=== PATIENT | female | born 1970 | race Caucasian/White ===

== ENCOUNTER 2016-10-06 18:57 | Emergency (ER) | payer MEDICAID ==
[2016-10-06] MEDS ORDERED: LIDOCAINE HCL 2% JELLY 1 APP/5 ML TUBE ONE (19:44)
[2016-10-06] MEDS ORDERED: MAGNESIUM CITRATE SOLN 296 ML BTL ONE ×2 (20:58→23:37)
[2016-10-06] MEDS ORDERED: ONDANSETRON ODT 8 MG TAB.RAPDIS PO ONE (22:09)
--- NOTE | 2016-10-06 23:33 | ER PHYSICIAN DOCUMENTATION ---
Physician Documentation [facility] Name:Karly Hitchcock Age:46 yrs Sex:Female :1970 Arrival Date:10/06/2016 Time:18:57 Bed3 Private MD:Tashi Andres; Kimberlyn Puentes ED, Scott Disposition: 10/06/16 20:08 Discharged to Home/Self Care. Impression: Constipation. - Condition is Good. - Discharge Instructions: CONSTIPATION (Adult). - Medical Reconciliation form form. - Follow up: Kimberlyn Puentes; When: As needed; Reason: Continuance of care. - Problem is new. - Symptoms have improved. HPI: 10/06 20:05 This 46 yrs old Female presents to ER via Private Vehicle with complaints of sc Abdominal Pain. 20:05 The patient presents with constipation, the patient has not had a bowel movement for sc 2days. Onset: The symptoms/episode began/occurred gradually. The symptoms do not radiate. Associated signs and symptoms: none. Modifying factors: the symptoms are aggravated by narcotics since mesh takedown on bladder, using colace but nothing else. Historical: - Allergies: PENICILLINS; - Home Meds: 1. morphine 15 mg oral TbER 1 tab every 12 hours 2. Percocet 5-325 mg oral tab 1 tab every 6 hours for Pain 3. bupropion HCl 75 mg oral tab bid for bipolar 4. metformin for wt loss twice a day 5. lamotrigine 150 mg oral tab 1 tab 2 times per day 6. Gralise 600 mg oral Tb24 6 tabs daily 7. nifedipine 10 mg oral cap 1 cap 3 times per day 8. topiramate 100 mg oral tab 1 tab 2 times per day 9. methotrexate sodium 2.5 mg oral tab 3 tabs once a week 10. ondansetron HCl 8 mg oral tab 1 tab 11. gabapentin 600 mg oral tab 1 tab 3 times per day for Neuropathic Pain - PMHx: DIABETES - NIDDM; Lower Extremity Pain (August 20, 2015); BIPOLAR DISORDER; circulation problem in feet; neuropathy; - PSHx: bladder mesh removal 08/2016; - Tetanus: < 10 years. - Ebola Screening: : Patient negative for fever greater than or equal to 101.5 degrees Fahrenheit, and additional compatible Ebola Virus Disease symptoms. Patient denies exposure to infectious person. Patient denies travel to an Ebola-affected area in the 21 days before illness onset. No symptoms or risks identified at this time. . - Immunization history: Unable to Obtain. - Social history: Smoking status: Patient states was never smoker of tobacco. ROS: 20:06 Constitutional: Negative for fever, chills, and weight loss. sc Eyes: Negative for injury, pain, redness, and discharge. ENT: Negative for injury, pain, and discharge. Cardiovascular: Negative for chest pain, palpitations, and edema. Respiratory: Negative for shortness of breath, cough, wheezing, and pleuritic chest pain. Skin: Negative for injury, rash, and discoloration. 20:06 Neuro: Negative for headache, weakness, numbness, tingling, and seizure. sc 20:06 Abdomen/GI: Positive for constipation, Negative for nausea, vomiting, diarrhea, abdominal cramps, abdominal distension, anorexia, dysphagia. Exam: Constitutional: This is a well developed, well nourished patient who is awake, alert, and in no acute distress. Head/Face: Normocephalic, atraumatic. Eyes: Pupils equal round and reactive to light, extra-ocular motions intact. Lids and lashes normal. Conjunctiva and sclera are non-icteric and not injected. Cornea within normal limits. Periorbital areas with no swelling, redness, or edema. Cardiovascular: Regular rate and rhythm with a normal S1 and S2. No gallops, murmurs, or rubs. Normal PMI, no JVD. No pulse deficits. Respiratory: Lungs have equal breath sounds bilaterally, clear to auscultation and percussion. No rales, rhonchi or wheezes noted. No increased work of breathing, no retractions or nasal flaring. Back: No spinal tenderness. No costovertebral tenderness. Full range of motion. Skin: Warm, dry with normal turgor. Normal color with no rashes, no lesions, and no evidence of cellulitis. 20:06 Neuro: Awake and alert, GCS 15, oriented to person, place, time, and situation. sc Cranial nerves II-XII grossly intact. Motor strength 5/5 in all extremities. Sensory grossly intact. Cerebellar exam normal. Normal gait. 20:06 Abdomen/GI: Inspection: abdomen appears normal, Bowel sounds: normal, Palpation: abdomen is soft and non-tender, Rectal exam: fecal impaction, that is mild, per rn. Vital Signs: 19:07 BP 129 / 84; Pulse 92; Resp 16; Temp 98.5; Pulse Ox 95% ; Weight 110.22 kg; Height 5 jt ft. 3 in. (160.02 cm); 23:11 BP 125 / 66; Pulse 74; Resp 15; Pulse Ox 96% on R/A; Pain 0/10; mk2 23:31 BP 124 / 61; Pulse 80; Pulse Ox 97% on R/A; Pain 0/10; mk2 19:07 Body Mass Index 43.05 (110.22 kg, 160.02 cm) jt MDM: 19:35 Patient medically screened. mn 20:07 Differential diagnosis: bowel obstruction, non-specific abd pain. Data reviewed: vital sc signs, nurses notes, old medical records, and as a result, I will continue to observe the patient. Counseling: I had a detailed discussion with the patient and/or guardian regarding: the historical points, exam findings, and any diagnostic results supporting the discharge/admit diagnosis, the need for outpatient follow up, to return to the emergency department if symptoms worsen or persist or if there are any questions or concerns that arise at home. Response to treatment: the patient's symptoms have markedly improved after treatment. 10/06 20:51 Order name: Enema: Soap Suds; Complete Time: 21:01 mn Dispensed Medications: 21:01 Drug: Magnesium Citrate Liquid 300 ml; Route: PO; rs 23:11 Follow up: Response: No adverse reaction mk2 21:58 Drug: Zofran 8 mg; Route: PO; rs 23:11 Follow up: Response: Nausea is decreased mk2 23:27 Drug: Magnesium Citrate Liquid 300 ml; Route: PO; mk2 23:31 Follow up: Response: Pharmacy closed - take home med pack mk2 Signatures: Sharmaine Miller RN RN rs Elver Puentes MD MD sc Kruger, Meg, RN RN 2
--- NOTE | 2016-10-06 23:33 | ER NURSING DOCUMENTATION ---
Nurse's Notes [facility] Name:Karly Hitchcock Age:46 yrs Sex:Female :1970 Arrival Date:10/06/2016 Time:18:57 Bed3 Private MD:Tashi Adnres; Kimberlyn Puetnes Diagnosis:Constipation Presentation: 10/06 19:05 Acuity: BENITA 3 mk2 19:06 Presenting complaint: Patient states: Constipated x 2 days, takes morphine and rs Percocet, feels like "the poop is right there", attempted digital removal at home with no success. Has used an enema and stool softeners, also with no success. Had bladder mesh removal surgery 09/11/16. Pain is rectal, not abdominal. No n/v, no f/c. No UTI sx. Transition of care: patient was not received from another setting of care. 19:06 Method Of Arrival: Private Vehicle rs Triage Assessment: 19:15 General: Appears in no apparent distress, uncomfortable, obese. Behavior is anxious, rs cooperative, pleasant. Pain: Complains of pain in rectal Pain currently is 7 out of 10 on a pain scale. Neuro: No deficits noted. Level of Consciousness is awake, alert, Oriented to person, place, time, event. Cardiovascular: No deficits noted. Capillary refill < 3 seconds Pulses are 3+ in left radial artery. Respiratory: No deficits noted. Respiratory effort is even, unlabored, Respiratory pattern is regular, symmetrical. GI: Abdomen is non- distended obese, Bowel sounds present X 4 quads. Abd is soft and non tender Reports constipation, Denies diarrhea, nausea, vomiting. : No deficits noted. Denies burning with urination, discharge, inability to void, urinary frequency, urgency. Derm: No deficits noted. Skin is pink, warm & dry. Historical: - Allergies: PENICILLINS; - Home Meds: 1. morphine 15 mg oral TbER 1 tab every 12 hours 2. Percocet 5-325 mg oral tab 1 tab every 6 hours for Pain 3. bupropion HCl 75 mg oral tab bid for bipolar 4. metformin for wt loss twice a day 5. lamotrigine 150 mg oral tab 1 tab 2 times per day 6. Gralise 600 mg oral Tb24 6 tabs daily 7. nifedipine 10 mg oral cap 1 cap 3 times per day 8. topiramate 100 mg oral tab 1 tab 2 times per day 9. methotrexate sodium 2.5 mg oral tab 3 tabs once a week 10. ondansetron HCl 8 mg oral tab 1 tab 11. gabapentin 600 mg oral tab 1 tab 3 times per day for Neuropathic Pain - PMHx: DIABETES - NIDDM; Lower Extremity Pain (August 20, 2015); BIPOLAR DISORDER; circulation problem in feet; neuropathy; - PSHx: bladder mesh removal 08/2016; - Tetanus: < 10 years. - Ebola Screening: : Patient negative for fever greater than or equal to 101.5 degrees Fahrenheit, and additional compatible Ebola Virus Disease symptoms. Patient denies exposure to infectious person. Patient denies travel to an Ebola-affected area in the 21 days before illness onset. No symptoms or risks identified at this time. . - Immunization history: Unable to Obtain. - Social history: Smoking status: Patient states was never smoker of tobacco. Screenin:30 Nutritional screening: No deficits noted. rs 20:13 Infectious Disease Risk None. Abuse screen: Denies threats or abuse. rs Assessment: 20:13 See Triage Assessment done by same RN. rs 22:05 Reassessment: Patient states feeling better. She is slowly sipping on the Mag Citrate. rs &-up was added to make it more palatable. Encouraged to finish within the next 30 min. Five minutes later she was c/o nausea. Given Zofran. Told to wait until the nausea passes and then restart the Mag Citrate. She states she is no longer having the rectal pain. . Vital Signs: 19:07 BP 129 / 84; Pulse 92; Resp 16; Temp 98.5; Pulse Ox 95% ; Weight 110.22 kg; Height 5 jt ft. 3 in. (160.02 cm); 23:11 BP 125 / 66; Pulse 74; Resp 15; Pulse Ox 96% on R/A; Pain 0/10; mk2 23:31 BP 124 / 61; Pulse 80; Pulse Ox 97% on R/A; Pain 0/10; mk2 19:07 Body Mass Index 43.05 (110.22 kg, 160.02 cm) jt ED Course: 18:59 Patient arrived in ED. ma1 18:59 Tashi Andres MD is Private Physician. ma1 18:59 Kimberlyn Puentes is Private Physician. ma1 19:05 Ronda Dale, RN is Primary Nurse. mk2 19:05 Triage completed. mk2 19:15 Notified ED Physician of patient's arrival and chief complaint. Dr. Puentes notified. Arm rs band placed on Bed in low position Call Light in Reach Gowned HOB Elevated Side rails up x1. Family accompanied patient. 19:30 Valuables Remains with patient. Door closed. Noise minimized. Lights dimmed. Verbal rs reassurance given. Warm blanket given. 19:35 Elver Puentes MD is Attending Physician. pa 19:50 Soap suds enema given. Patient tolerated poorly 400 ml rectally. Held briefly, up to BR rs and had no formed stool, only liquid. . 20:07 Kimberlyn Puentes is Referral Physician. pa 20:30 Soap suds enema given. Patient tolerated poorly 400 ml rectally. Held much longer this rs time. Up to the BR with . 22:19 Report received from Zuly Christensen [facility] Administered Medications: 21:01 Drug: Magnesium Citrate Liquid 300 ml; Route: PO; rs 23:11 Follow up: Response: No adverse reaction mk2 21:58 Drug: Zofran 8 mg; Route: PO; rs 23:11 Follow up: Response: Nausea is decreased mk2 23:27 Drug: Magnesium Citrate Liquid 300 ml; Route: PO; mk2 23:31 Follow up: Response: Pharmacy closed - take home med pack 2 Outcome: 20:08 Discharge ordered by . pa 23:31 Discharged to home ambulatory. 2 23:31 Condition: Pt states she has had a small bm but prefers to go home and wait for the medication to take effect. 23:31 Discharge instructions given to patient, family, Instructed on discharge instructions, follow up and referral plans. medication usage. 23:32 Patient left the ED. mk2 10/07 12:21 Discharge F/U Call: Unable to reach: non-working number st Signatures: Reena Luna RN RN st Stalker, Rachael, RN RN rs Chew, Scott, MD MD sc Kruger, Meg, RN RN 2 Radha Kaufman Melissa [facility]
== END 2016-10-06 23:33 | disposition home or self-care (01) ==
LOC: ER 18:57
DX: K59.03 Drug induced constipation (principal); R11.0 Nausea; Z98.890 Other specified postprocedural states; E11.9 Type 2 diabetes mellitus without complications; Z79.891 Long term (current) use of opiate analgesic; Z79.899 Other long term (current) drug therapy
CPT/HCPCS: 99284

== ENCOUNTER 2016-11-07 06:28 | Day surgery (SDC) | payer MEDICAID ==
[2016-11-07] MEDS ORDERED: LIDOCAINE HCL 1% 20 ML VIAL SUBCUT PRN ×2 (07:11→08:44)
[2016-11-07] MEDS ORDERED: MIDAZOLAM HCL 2 MG/2 ML SYR IV PRN ×2 (07:11→08:44)
[2016-11-07] MEDS ORDERED: FAMOTIDINE IN SALINE, ISO-OSM 20 MG/50 ML PIGGYBACK IV SCH ×2 (07:15→08:44)
[2016-11-07] MEDS ORDERED: ACETAMINOPHEN 1,000 MG/100 ML VIAL IV SCH ×2 (07:15→08:44)
[2016-11-07] MEDS ORDERED: BUPIVACAINE/EPI 0.25% 1 VIAL VIAL ONE (07:18)
[2016-11-07] MEDS ORDERED: ONDANSETRON HCL 4 MG/2 ML VIAL IV PRN ×3 (07:25→08:44)
[2016-11-07] MEDS ORDERED: BACITRACIN 14 APP/14 GM TUBE TOPICAL ONE (07:28)
[2016-11-07] MEDS ORDERED: ONDANSETRON HCL 4 MG/2 ML VIAL ONE ×2 (07:29→08:50)
[2016-11-07] MEDS ORDERED: MIDAZOLAM HCL 2 MG/2 ML VIAL ONE (07:29)
[2016-11-07] MEDS ORDERED: SUCCINYLCHOLINE CHLORIDE 200 MG/10 ML VIAL ONE (07:30)
[2016-11-07] MEDS ORDERED: CLINDAMYCIN/D5W 600 MG/50 ML 600 MG PIGGYBACK IV ONE ×3 (07:30→08:44)
[2016-11-07] MEDS ORDERED: ROCURONIUM BROMIDE 50 MG/5 ML VIAL IV ONE (07:31)
[2016-11-07] MEDS ORDERED: LIDOCAINE HCL 2% JELLY 1 APP/5 ML TUBE ONE (07:38)
[2016-11-07] MEDS ORDERED: FENTANYL 100 MCG/2 ML VIAL ONE (07:38)
[2016-11-07] MEDS ORDERED: LACTATED RINGERS 1,000 ML IV SCH ×3 (08:00→09:00)
[2016-11-07] MEDS ORDERED: EPHEDrine SULFATE 50 MG/ML VIAL ONE (08:12)
[2016-11-07 08:37] VITALS: TEMP 97.2
[2016-11-07] MEDS ORDERED: KETOROLAC TROMETHAMINE 30 MG/ML VIAL IV PRN (08:44)
[2016-11-07] MEDS ORDERED: FENTANYL 100 MCG/2 ML VIAL IV PRN (08:44)
[2016-11-07 08:53] VITALS: RESP 16
[2016-11-07] MEDS ORDERED: KETOROLAC TROMETHAMINE 30 MG/ML VIAL ONE (09:00)
[2016-11-07] MEDS: MORPHINE SULFATE 10 MG/ML SYR IV PRN ×2 (09:00→09:10)
[2016-11-07 09:38] VITALS: O2SAT 93
[2016-11-07 10:24] VITALS: BP 99/79; PULSE 76
--- NOTE | 2016-11-07 16:08 | OPERATIVE REPORT ---
DATE OF SURGERY: 11/07/16 SURGEON: Jeffry Benjamin DO ANESTHESIA: General. PREOPERATIVE DIAGNOSIS: Right knee medial meniscus tear. POSTOPERATIVE DIAGNOSIS: Right knee medial meniscus tear, plica/synovitis. Grade 4 chondromalacia medial femoral condyle, medial tibial plateau and trochlea. OPERATION PERFORMED: Right knee arthroscopic medial meniscectomy and plica/ synovectomy. ESTIMATED BLOOD LOSS: Minimal. COMPLICATIONS: None. TOTAL TOURNIQUET TIME: 29 minutes. PROCEDURE NOTE: The patient was brought to the operating room suite and after administration of general anesthesia the right lower extremity was prepped and draped in sterile fashion. The leg was exsanguinated of blood with an Esmarch bandage prior to insufflation of the tourniquet to 300 mmHg. Anterolateral portal was created first and then anteromedial portal was created after first inserting a spinal needle under direct visualization. The portal sites were injected with 0.25% bupivacaine with epinephrine prior to incision. Diagnostic arthroscopy revealed the above findings. A small portion of the anterior fat pad was removed for visualization purposes. The medial meniscal tear was noted to be in the posterior one-third of the meniscus and had delamination and radial tearing components which was saucerized back to stable meniscal tissue with arthroscopic instrumentation including bitters and shaver. The lateral meniscus had some minimal fraying which was also shaved. The patient had grade 4 chondromalacia of the medial tibial plateau and medial femoral condyle and trochlea. The loose cartilage in these areas was debrided back. She had a large pedunculated cartilaginous lesion in the trochlea osteochondral lesion which was also debrided. She had a significant amount of synovitis throughout the knee which was debrided with arthroscopic shaver including a lateral plica which was also excised. The knee was drained of all arthroscopic fluid and the incisions were closed with 3-0 nylon followed by a dressing of bacitracin ointment, Xeroform, 4x4s, ABDs, cast padding and Sebas bandage. The patient was transferred from the OR suite to the recovery room in stable condition. YANDY
--- NOTE | 2016-11-10 14:37 | PREOPERATIVE H&P ---
History of Present Illness (Jeffry Benjamin DO; 10/20/2016 12:20 PM) The patient is a 46 year old female. Patient presents complaining of left knee pain. She was scheduled for a right knee arthroscopy but now she is having left knee pain which is likely compensatory. Problem List/Past Medical (Jeffry Benjamin DO; 10/20/2016 12:20 PM) Degenerative tear of posterior horn of medial meniscus, right (M23.321) Depression (F32.9) Hypothyroidism (E03.9) Bipolar 1 disorder (F31.9) Left knee pain (M25.562) Complication of implanted vaginal mesh and other prosthetic materials (T83.9XXA) Lumbar back pain with radiculopathy affecting right lower extremity (M54.17) Acute medial meniscal tear, left, initial encounter (S83.242A) Obesity, morbid (E66.01) Idiopathic peripheral neuropathy (G60.9) Pain Specialist Scalp pain (R51) Burning Sensation Trial of Selsun RX shampoo 2x/week Primary localized osteoarthritis of right knee (M17.11) Encounter for gynecological examination without abnormal finding(40-64) (Z01.419 ) Encounter for screening mammogram for breast cancer (Z12.31) Menorrhagia with irregular cycle (N92.1) Cervical cancer screening (Z12.4) Urticarial rash (L50.9) Palms, Soles, Scalp Endometrial hyperplasia (N85.00) Dr. Cunningham Vitamin B 12 deficiency (E53.8) Endometriosis (N80.9) DM type 2 (diabetes mellitus, type 2) (E11.9)2016 Allergies (Terri Ashford RN; 10/20/2016 10:20 AM) Cefzil *CEPHALOSPORINS* Penicillins (Amoxicillin, Augmentin, Unasyn...) Difficulty swallowing, Difficulty breathing. Family History (Terri Ashford RN; 10/20/2016 10:20 AM) Father HTN, Heart Mother Valvular Heart Disease Social History (Jeffry Benjamin DO; 10/20/2016 12:20 PM) Tobacco Use Current some day smoker. Quit in 2014, 1 PPD x 30 Years, restarted 2016 Alcohol Use Drinks Rarely. Sunblock Not Used Recommended Number of Children 3. 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 No drug use Medication History (Terri Ashford, RN; 10/20/2016 10:19 AM) Wellbutrin (75MG Tablet, 2 Tablets Oral BID, Taken starting 07/27/2015) Active. Gralise (600MG Tablet, 2 (two) Tablet Oral two times daily, Taken starting ) Active. LaMICtal (150MG Tablet, 1 (one) Tablet Oral two times daily, Taken starting ) Active. MetFORMIN HCl (500MG Tablet, 1 Tablet Oral bid, Taken starting 08/16/2015) Active. OneTouch Verio (1 Strip In Vitro daily, or as directed, Taken starting 2015) Active. Lancets (1 Lancet daily, or as directed, Taken starting 08/24/2015) Active. (~ Please provide brand/style of patient's choice. ~) CeleBREX (200MG Capsule, 1 (one) Capsule Oral daily, Taken starting 08/27/2015 ) Active. OneTouch Verio (w/Device Kit, 1 Kit as directed, Taken starting 09/17/2015) Active. (Dx: DM Type 2 (E11.9)) Levothyroxine Sodium (50MCG Tablet, 1 Oral daily, Taken starting 12/06/2015) Active. (Routine TSH lab due 07/2016.) Morphine Sulfate (15MG Tablet, 1 tab Oral two times daily) Active. Oxycodone-Acetaminophen (5-325MG Tablet, 1 tab Oral every six hours, as needed ) Active. NIFEdipine (10MG Capsule, 1 tab Oral three times daily) Active. Topiramate (100MG Tablet, 1 tab Oral 1-2 times/day) Active. Methotrexate (Anti-Rheumatic) (3 tabs Oral once weekly) Specific dose unknown - Active. Vitamin B12 7500mcg under tongue daily Active. Amitriptyline HCl (10MG Tablet, 2 tablets Oral daily) Active. (Ultimately, she will be taking [address] Nino.) Multi-Vitamin (1 Oral daily) Active. Benadryl (25MG Tablet, 2 Oral as needed) Active. Calcium 1000 + D (1640-070YB-MSMP Tablet, 1 Oral daily) Active. 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 Cunningham ([place]) Mammogram per Dr. Cunningham Pap [id number] per Dr[address] Cunningham Other Problems (Jeffry BenjaminDO; 10/20/2016 12:20 PM) Health education/counseling (Z71.89) Effusion of right knee (M25.461) Review of Systems (Jeffry Benjamin ; 10/20/2016 12:20 PM) General Not Present- Chills and Fever. Skin Not Present- Erythema, Skin Color Changes and Skin Problems. HEENT Not Present- Sleep Apnea. Neck Not Present- Neck Pain. Respiratory Not Present- Cough and Shortness of Breath. Cardiovascular Not Present- Chest Pain, Difficulty Breathing On Exertion, Fainting and Leg Pain and/or Swelling. Gastrointestinal Not Present- Abdominal Pain, Nausea and Vomiting. Female Genitourinary Not Present- Painful Urination. Musculoskeletal Not Present- Decreased Range of Motion, Joint Pain, Joint Stiffness, Joint Swelling, Muscle Pain and Muscle Weakness. Neurological Not Present- Dizziness, Focal Neurological Symptoms, Numbness in extremities, Trouble walking and Weakness. Psychiatric Not Present- Anorexia, Anxiety and Depression. Endocrine Not Present- Weight Loss. Hematology Not Present- Bleeding Problems, DVT and Easy Bruising. Vitals (Terri Ashford RN; 10/20/2016 10:19 AM) 10/20/2016 10:18 AM Weight: 243 lb Height: 63in Body Surface Area: 2.1 m Body Mass Index: 43.05 kg/m Temp.: 98.1F Pulse: 80 (Regular) Resp.: 16 (Unlabored) BP: 136/66 (Sitting, Left Arm, Standard) Physical Exam (Jeffry Benjamin ; 10/20/2016 12:21 PM) Physical examination of the LEFT knee demonstrates no skin defects with normal appearance, color and temperature. There is no effusion. There is no swelling or edema. The peripheral neurovascular status is intact with normal sensation and adequate perfusion. Patella grind is positive with no crepitance. Both flexion and extension are +5/5 for strength. Range of motion is from 0 of extension to 110 of flexion with no pain at full flexion. There is no crepitance with range of motion. There is no medial or lateral instability or laxity with varus and valgus moment at both 0 of extension and 30 of flexion. There is no anterior or posterior instability or laxity with a negative Michelle's, negative anterior drawer and negative posterior drawer. There is no tenderness to palpation over the inferior pole of the patella, the tibial tubercle or the patella tendon. There is both medial and lateral joint line tenderness to palpation. Mila's test is negative. Assessment & Plan (Jeffry Benjamin DO; 10/20/2016 12:27 PM) Primary osteoarthritis of left knee (M17.12) Impression: The nature of this disease was discussed and the patient was educated regarding its anatomical basis and natural progression. Therapeutic options were discussed including activity modification, physical therapy, injections, medications and the potential roll for surgery in the future if conservative treatments do not alleviate the patient's symptoms with the associated risks and benefits. All questions answered. The patient was instructed on appropriate activity modifications. The patient agreed to and signed consent for an injection of the pathology with a steroid (8mg of Dexamethasone) and a local analgesic (2ml of 1% Lidocaine + 2ml of 0.25% Bupivacaine). The risks and benefits of the injection were discussed. The area was cleaned and prepped in a sterile fashion prior to injection with a triple prep (alcohol, Betadine and chlorhexidine). The patient tolerated the procedure well and had subsequent relief of their symptoms. A bandage was applied. The patient will follow up if needed or if the symptoms persist. The patient would like to proceed with the contralateral (right) knee arthroscopy. Current Plans Inject/Aspirate Large Joint (shoulder, hip, knee) (15128) Lidocaine 1% (J3490) Marcaine 0.25% (30 ml) (S0020) Decadron 1 mg (J1100) [facility]:86659-570-45 (8 Units) Signed by Jeffry Benjamin DO (10/20/2016 12:27 PM) Pt. was examined at bedside and no changes were noted. Signed Jeffry Benjamin DO 11/07/2016. MTDD
== END 2016-11-07 10:10 | disposition home or self-care (01) ==
LOC: SDS 06:28
PROVIDERS: ATTEND Orthopaedic Surgery
DX: M23.221 Derangement of posterior horn of medial meniscus due to old tear or injury, right knee (principal); E03.9 Hypothyroidism, unspecified; E66.01 Morbid (severe) obesity due to excess calories; E53.8 Deficiency of other specified B group vitamins; E11.9 Type 2 diabetes mellitus without complications; Z79.899 Other long term (current) drug therapy
CPT/HCPCS: J1885; J2250; J2270; J2405; J3010